=== PATIENT | female | born 1990 | race Caucasian/White ===

== ENCOUNTER 2017-12-26 11:17 | Inpatient (IN) | payer MEDICAID ==
[2017-12-26 11:41] LABS: APPEARANCE,URINE CLOUDY; BILIRUBIN,URINE NEGATIVE (NEGATIVE); COLOR,URINE YELLOW; GLUCOSE, URINE NEGATIVE (NEGATIVE); KETONES,URINE TRACE mg/dL (NEGATIVE); LEUKOCYTE ESTERASE,URINE SMALL (NEGATIVE); NITRITE,URINE NEGATIVE (NEGATIVE); PROTEIN,URINE NEGATIVE (NEGATIVE); UROBILINOGEN,URINE NEGATIVE mg/dL (<2.0)
[2017-12-26] MEDS ORDERED: RINGERS SOLUTION,LACTATED 1,000 ML IV ONE (12:02)
[2017-12-26 12:05] LABS: URINE AMPHETAMINES SCREEN NEGATIVE; URINE BARBITURATES SCREEN NEGATIVE; URINE BENZODIAZEPINES SCREEN NEGATIVE; URINE COCAINE SCREEN NEGATIVE; URINE MARIJUANA (THC) SCREEN NEGATIVE; URINE METHADONE SCREEN NEGATIVE; URINE PHENCYCLIDINE SCREEN NEGATIVE
[2017-12-26] MEDS ORDERED: LIDOCAINE 1% INJ-PF (10 MG/ML) 30 ML SDV ONE (12:45)
[2017-12-26] MEDS ORDERED: MISOPROSTOL 0.2 MG TABLET ONE (12:45)
[2017-12-26] MEDS ORDERED: OXYTOCIN/NORMAL SALINE 20 UNIT/1,000 ML RTUINJ ONE (12:45)
[2017-12-26 12:59] LABS: ABSOLUTE EOSINOPHILS # (AUTO) 0.1 10^3/uL (0.0-0.6); ABSOLUTE LYMPHOCYTES (AUTO) 2.2 10^3/uL (0.5-4.7); ABSOLUTE NEUT (AUTO) 11.2 10^3/uL (1.7-8.2); BASOPHILS % (AUTO) 0.2 % (0-2); EOSINOPHILS % (AUTO) 0.4 % (0-6); HEMATOCRIT 32.8 % (36.0-47.0); HEMOGLOBIN 10.5 g/dL (12.0-15.5); LYMPHOCYTES % (AUTO) 15.5 % (13-45); MEAN CORPUSCULAR HEMOGLOBIN 24.4 pg (27.0-33.4); MEAN CORPUSCULAR VOLUME 76 fl (80-97); MONOCYTES % (AUTO) 6.6 % (3-13); PLATELET COUNT 257 10^3/uL (150-450); RED BLOOD COUNT 4.31 10^6/uL (3.72-5.28); RED CELL DISTRIBUTION WIDTH 16.8 % (11.5-14.0); SEGMENTED NEUTROPHILS % (AUTO) 77.3 % (42-78); TOTAL CELLS COUNTED % (AUTO) 100 %; WHITE BLOOD COUNT 14.4 10^3/uL (4.0-10.5)
[2017-12-26] MEDS ORDERED: EPHEDRINE SULFATE INJ 50 MG/1 ML AMPULE ONE (13:11)
[2017-12-26] MEDS ORDERED: BUPIVACAINE HCL 0.25 % INJ/PF (2.5 MG/1 ML) 30 ML VIAL ONE (13:11)
[2017-12-26] MEDS ORDERED: FENTANYL/BUPIVACAINE/NS/PF 200 MCG/100 ML RTUINJ EPI ONE (13:11)
[2017-12-26] MEDS: RINGERS SOLUTION,LACTATED 1,000 ML IV PRN ×2 (15:20→15:21)
[2017-12-26] MEDS ORDERED: OXYTOCIN/NORMAL SALINE 20 UNIT/1,000 ML RTUINJ IV PRN ×2 (15:35→17:26)
[2017-12-26] MEDS ORDERED: ZOLPIDEM TARTRATE 5 MG TABLET PO PRN (17:26)
[2017-12-26] MEDS ORDERED: DIPH/PERTUSS(ACELL)/TETANUS VAC/PF 0.5 ML SYR (>=10YO) IM PRN (17:26)
[2017-12-26] MEDS ORDERED: MEASLES,MUMPS&RUBELLA VACC/PF 0.5 ML VIAL SUBCUT PRN (17:26)
[2017-12-26] MEDS ORDERED: BENZOCAINE/MENTHOL AEROSOL SPRAY 56 ML TOP PRN (17:26)
[2017-12-26] MEDS ORDERED: ACETAMINOPHEN WITH CODEINE #3 TABLET PO PRN ×2 (17:26)
[2017-12-26] MEDS ORDERED: DIBUCAINE 1% OINTMENT 28 GM TP PRN (17:26)
--- NOTE | 2017-12-26 18:27 | Delivery Summary ---
Del Sum A-C Datetime Report Generated by CPN: 12/26/2017 18:27 DELIVERY PERSONNEL DELIVERY PERSONNEL: [id number] Delivery Doctor:: Lin Nguyễn CNM Labor and Delivery Nurse:: Deepthi Gruber RNproduct development consultant Nurse:: Mago Ramirez RN Natural Science Curator/PRESSURE STEAMER TENDER: Heidy Adamsona, ST MATERNAL INFORMATION Delivery Anesthesia: Epidural Medications After Delivery: Pitocin Drip 20 Units/1000ml NSS Estimated Blood Loss (ml): 250 Maternal Complications: None Provider Comments: of viable female infant over intact perineum, head, shoulders and body delivered without difficutly, with spontaneous respirations and cry, cord clamped X2, cut free by pts after 2 min delay. Spontaneous delivery of placenta via vu mechanism, appears intact, 3 VC. Vagina and perineum inspected, no laceration noted. Hemostasis acheived with external fundal massage and IV pitocin, mother and infant in stable condition, routine pp care. LABOR SUMMARY EDC: 12/30/2017 00:00 Attempted: No Labor Anesthesia: Epidural LABOR INFORMATION Reason for Induction: Not Applicable Onset of Labor: 12/26/2017 11:22 Complete Dilatation: 12/26/2017 16:56 Oxytocin: N/A Group B Beta Strep: Negative Steroids Given: None Reason Steroids Not Administered: Not Applicable MEMBRANES Membranes Rupture Method: Artificial Rupture of Membranes: 12/26/2017 15:15 Length of Rupture (hr): 1.82 Amniotic Fluid Color: Clear Amniotic Fluid Amount: Scant Amniotic Fluid Odor: Normal STAGES OF LABOR Stage 1 hr: 5 Stage 1 min: 34 Stage 2 hr: 0 Stage 2 min: 8 Stage 3 hr: 0 Stage 3 min: 3 Total Time in Labor hr: 5 Total Time in Labor min: 45 VAGINAL DELIVERY Episiotomy: None Laceration #1: None Laceration Extension #1: N/A Laceration #2: None Laceration #3: None Laceration Repair: Not Applicable Sponge Count Correct: N/A Sharps Count Correct: N/A CSECTION DELIVERY Primary Indication: N/A Secondary Indication: N/A CSection Incidence: N/A Labor: N/A Elective: N/A CSection Incision: N/A BABY A INFORMATION Delivery Date/Time: 12/26/2017 17:04 Method of Delivery: Vaginal Born in Route : No : N/A Forceps: N/A Vacuum Extraction: N/A Shoulder Dystocia : No PRESENTATION/POSITION BABY A Presentation: Cephalic Cephalic Presentation: Vertex Vertex Position: Right Occipital Anterior Breech Presentation: N/A PLACENTA INFORMATION BABY A Placenta Delivery Time : 12/26/2017 17:07 Placenta Method of Delivery: Spontaneous Placenta Status: Delivered SCORES BABY A Heart Rate 1 min: >100 bpm Resp Effort 1 min: Good Cry Reflex Irritability 1 min: Cough or Sneeze or Pulls Away Muscle Tone 1 min: Active Motion Color 1 min: Blue/Pale Resuscitation Effort 1 min: Tactile Stimulation SCORE 1 MIN: 8 Heart Rate 5 min: >100 bpm Resp Effort 5 min: Good Cry Reflex Irritability 5 min: Cough or Sneeze or Pulls Away Muscle Tone 5 min: Active Motion Color 5 min: Body [place], Extremities Blue Resuscitation Effort 5 min: Tactile Stimulation SCORE 5 MIN: 9 INFORMATION BABY A Gestational Age at Delivery: 39.3 Gestational Status: Full Term- 39- 40.6 Weeks Infant Outcome : Liveborn Condition : Stable Sex: Female IDENTIFICATION BABY A Verification Date/Time: 12/26/2017 17:19 ID Band Number: [id number] Mother's Name Verified: Yes RN Verifying : J Field RN A Velasco RN WEIGHT/LENGTH BABY A Birthweight (gm): 3690 Weight (lb): 8 Infant Weight (oz): 2 Length (in): 20.75 Infant Length (cm): 52.71 CORD INFORMATION BABY A No. Cord Vessels: 3 Nuchal Cord : N/A Cord Blood Taken: Yes-For Eval (Mom's Blood Type - or O+) Suction: None ASSESSMENT BABY A Complications: None Physical Findings at Delivery: Within Normal Limits Respirations: Appears Normal Skin to Skin: Yes Skin to Skin Time (min): 60 Prep Room Supervisor/ALS Called : No Care By: A. Babine RN Transferred To: Remains with Mother BABY B INFORMATION : N/A SIGNATURES Assignment: Narda Porter MD Signature: with User ID: [email or web address] : with User ID: [email or web address]
--- NOTE | 2017-12-26 19:48 | Admission Physical ---
Datetime Report Generated by CPN: 12/26/2017 19:48 CURRENT ADMISSION Chief Complaint: Uterine Contractions Indication for Induction: Term, Intrauterine ; Active Labor Admit Plan: Admit to Unit; Initiate Labor Protocol ALLERGIES Medication Allergies: Yes Medication Allergies: cefuroxime axetil/Rash, swelling (12/17/2014); cephalexin monohydrate/Rash, swelling (12/17/2014) Latex: No Latex Allergies Food Allergies: N/A Environmental Allergies: N/A OBSTETRICAL HISTORY EDC: 12/30/2017 00:00 : 7 Para: 3 Gestational Diabetes: No Rh Sensitization: No Incompetent Cervix: No LINDSAY: No Infertility: No ART Treatment: No Uterine Anomaly: No IUGR: No Hx Previous C/S: No Macrosomia: No Hx Loss/Stillborn: No PIH: No Hx : No Placenta Previa/Abruption: No Depression/PP Depression: Yes PTL/PROM: No Post Hemorrhage: No Current Procedures: Ultrasound; NST Obstetrical History Comments: G1 - 2009, Baby Girl, 39 weeks G2 - 2012, Baby Boy, 39.4 weeks G3 - 2013, SAB G4 - 2013, SAB G5 - 2013, SAB G6 - 2014, Baby Girl, 40.2 weeks G7 - Current SEE RECORDS Alcohol: No Marijuana : No Cocaine: No Other Illicit Drugs: No Cigarettes: Former Smoker. [id number] Cigarette Frequency: < 5 per day Advised to Stop: Yes Cigarette Comments: Quit when she was MEDICAL HISTORY Diabetes: No Blood Transfusion: No Pulmonary Disease (Asthma, TB): Yes Breast Disease: No Hypertension: No Health And Safety Coordinator Surgery: No Heart Disease: No Hosp/Surgery: Yes Autoimmune Disorder: No Anesthetic Complications: No Kidney Disease: No Abnormal Pap Smear: No Neuro/Epilepsy: No Psychiatric Disorders: No Other Medical Diseases: No Hepatitis/Liver Disease: No Significant Family History: No Varicosities/Phlebitis: No Trauma/Violence : No Thyroid Dysfunction: No Medical History Comments: Taking off of Zoloft at beginning of ; foot surgery in 2004; seasonal mild allergies INFECTIOUS HISTORY Gonorrhea: No Genital Herpes: No Chlamydia: No Tuberculosis: No Syphilis: No Hepatitis: No HIV/AIDS Exposure: No Rash or Viral Illness: No HPV: No PHYSICAL EXAM General: Normal HEENT: Normal Neurologic: Normal Thyroid: Deferred Heart: Normal Lungs: Normal Breast: Deferred Back: Normal Abdomen: Normal Genitourinary Exam: Normal Extremities: Normal DTRs: Normal Pelvic Type: Adequate Physical Exam Comments: pelvis proven to 7#9oz. Vital Signs: Reviewed FETUS A EGA: 39.3 Monitoring: External US; Doppler FHR- Baseline: 130 Variability: Moderate 6-25bpm Accelerations: 15X15 Decelerations: None FHR Category: Category I Presentation: Vertex Admit Comment: 27yo at 39+3ega presented for [facility] at [facility] with regular uterine ctx. Cvx in office was 4cm. Within 1 hour cvx 5-6cm and patient was consented for admission. GBS negative. H/o SAB x 3. h/o x 3. [facility] transfer at 30+4ega. Anatomy US complete. Normal GTT> H/o Depression on zoloft. Desires BTL if . Will admit for labor and AROM if needed. Anticpate . REassuring FWB. o/w uncomplicated. PLANS FOR LABOR AND DELIVERY Labor and Delivery: None Pain Management: Epidural Feeding Preference: Breast Benefit of Breast Feed Discussed: Yes Circumcision: N/A INFORMED CONSENT Informed Consent Obtained: Vaginal Delivery; Risks, Benefits and Alternatives Discussed Signature: with User ID: [email or web address]
[2017-12-26] MEDS: DOCUSATE SODIUM 100 MG CAPSULE PO SCH (20:13)
[2017-12-26] MEDS: FERROUS SULFATE 325 MG TABLET PO SCH (20:13)
[2017-12-26] MEDS: IBUPROFEN 800 MG TABLET PO SCH (22:49)
[2017-12-27] MEDS: IBUPROFEN 800 MG TABLET PO SCH ×3 (06:57→22:32)
[2017-12-27 07:30] LABS: HEMATOCRIT 30.5 % (36.0-47.0); HEMOGLOBIN 9.7 g/dL (12.0-15.5); MEAN CORPUSCULAR HEMOGLOBIN 24.7 pg (27.0-33.4); MEAN CORPUSCULAR HGB CONC 31.9 g/dL (32.0-36.0); MEAN CORPUSCULAR VOLUME 77 fl (80-97); PLATELET COUNT 231 10^3/uL (150-450); RED BLOOD COUNT 3.94 10^6/uL (3.72-5.28); RED CELL DISTRIBUTION WIDTH 16.7 % (11.5-14.0)
--- NOTE | 2017-12-27 09:34 | PDOC PROGRESS REPORT ---
Subjective-OB Subjective: Post Delivery Day: 27 year old. Denies any needs at this time Physical Exam (OB) Vital Signs: Temp Pulse Resp BP Pulse Ox 97.9 F 86 16 113/64 99 12/27/17 08:32 12/27/17 08:32 12/27/17 08:32 12/27/17 08:32 12/27/17 08:32 Intake & Output 12/26/17 12/27/17 12/28/17 06:59 06:59 06:59 Weight 95.3 kg - Lochia Lochia Amount: Small 10-25 ml Lochia Color: Rubra/Red - Abdomen Description: Soft, Round Hernia Present: No Bowel Sounds: Normoactive Flatus Presence: Present Stool: No Fundal Description: Firm, Midline Fundal Height: u/u - u/2 - Extremities Upper extremity: Normal inspection Lower extremities: Normal inspection Objective-Diagnostic Laboratory: 12/27/17 06:59 12/26/17 12/26/17 12/26/17 11:28 12:35 12:35 WBC 14.4 H RBC 4.31 Hgb 10.5 L Hct 32.8 L MCV 76 L MCH 24.4 L MCHC 32.0 RDW 16.8 H Plt Count 257 Seg Neutrophils % 77.3 Lymphocytes % 15.5 Monocytes % 6.6 Eosinophils % 0.4 Basophils % 0.2 Absolute Neutrophils 11.2 H Absolute Lymphocytes 2.2 Absolute Monocytes 1.0 Absolute Eosinophils 0.1 Absolute Basophils 0.0 Urine Color YELLOW Urine Appearance CLOUDY Urine pH 6.0 Ur Specific [place] 1.010 Urine Protein NEGATIVE Urine Glucose (UA) NEGATIVE Urine Ketones TRACE H Urine Blood NEGATIVE Urine Nitrite NEGATIVE Ur Leukocyte Esterase SMALL H Blood Type O POSITIVE Antibody Screen NEGATIVE 12/27/17 06:59 WBC 13.0 H RBC 3.94 Hgb 9.7 L Hct 30.5 L MCV 77 L MCH 24.7 L MCHC 31.9 L RDW 16.7 H Plt Count 231 Seg Neutrophils % Lymphocytes % Monocytes % Eosinophils % Basophils % Absolute Neutrophils Absolute Lymphocytes Absolute Monocytes Absolute Eosinophils Absolute Basophils Urine Color Urine Appearance Urine pH Ur Specific [place] Urine Protein Urine Glucose (UA) Urine Ketones Urine Blood Urine Nitrite Ur Leukocyte Esterase Blood Type Antibody Screen
[2017-12-27] MEDS: SENNOSIDES/DOCUSATE 8.6-50 MG 1 EACH TABLET PO SCH (10:09)
[2017-12-27] MEDS: DOCUSATE SODIUM 100 MG CAPSULE PO SCH ×2 (10:09→17:43)
[2017-12-27] MEDS: FERROUS SULFATE 325 MG TABLET PO SCH ×2 (10:09→17:43)
[2017-12-27] MEDS: PRENATAL VITAMIN W DHA CAPSULE PO SCH (10:09)
[2017-12-28] MEDS: IBUPROFEN 800 MG TABLET PO SCH ×2 (05:31→13:31)
[2017-12-28 10:18] VITALS: BP 117/63
[2017-12-28] MEDS: PRENATAL VITAMIN W DHA CAPSULE PO SCH (10:54)
[2017-12-28] MEDS: FERROUS SULFATE 325 MG TABLET PO SCH (10:55)
[2017-12-28] MEDS: DOCUSATE SODIUM 100 MG CAPSULE PO SCH (10:55)
[2017-12-28] MEDS: SENNOSIDES/DOCUSATE 8.6-50 MG 1 EACH TABLET PO SCH (10:55)
--- NOTE | 2017-12-28 11:54 | PDOC PROGRESS REPORT ---
Subjective-OB Subjective: Post Delivery Day: 27 year old. Denies any needs at this time. Ready to go home. Physical Exam (OB) Vital Signs: Temp Pulse Resp BP Pulse Ox 97.8 F 56 L 20 117/63 98 12/28/17 07:31 12/28/17 07:31 12/28/17 07:31 12/28/17 07:31 12/28/17 07:31 Intake & Output 12/27/17 12/28/17 12/29/17 06:59 06:59 06:59 Weight 95.3 kg - PIH/Pre-Eclampsia DTR's: 2 + Clonus: Negative Headache: Absent Epigastric Pain: No Visual Changes: No - Lochia Lochia Amount: Scant < 10 ml Lochia Color: Rubra/Red - Abdomen Description: Soft Hernia Present: No Bowel Sounds: Normoactive Flatus Presence: Present Stool: Yes Fundal Description: Firm, Midline Fundal Height: u/u - u/2 Objective-Diagnostic Laboratory: 12/27/17 06:59
--- NOTE | 2017-12-28 11:58 | PDOC DISCHARGE SUMMARY ---
Final Diagnosis Discharge Date: 12/28/17 Discharge Data - Discharge Medication Home Medications: Vits96/Iron Fum/Folic [ Tablet] 1 tab PO DAILY 11/23/14 Gestational Age: 39.3 wks Reason(s) for Admission: Onset of Labor Intrapartum Procedure(s): Spontaneous Vaginal Delivery - Data Baby 1 Female at 1 minute: 8 at 5 minutes: 9 Weight: 3.685 kg Home with Mother: Yes Complications: No - Diagnosis Test Laboratory: Temp Pulse Resp BP Pulse Ox 97.8 F 56 L 20 117/63 98 12/28/17 07:31 12/28/17 07:31 12/28/17 07:31 12/28/17 07:31 12/28/17 07:31 12/26/17 12/26/17 12/27/17 11:28 12:35 06:59 RBC 4.31 3.94 Hgb 10.5 L 9.7 L Hct 32.8 L 30.5 L Urine Opiates Screen NEGATIVE - Discharge information/Instructions Discharge Activity: Activity As Tolerated, Balance Activity w/Rest, Pelvic Rest , Slowly Increase Activity, No tub bath Discharge Diet: Regular Disposition: HOME, SELF-CARE Follow up with: [facility] in: 4, Weeks
== END 2017-12-28 14:21 | disposition home or self-care (01) | DRG 775 ==
LOC: LC 11:17 → LR 12:03 → 2S 19:45
PROVIDERS: ADMIT Student in an Organized Health Care Education/Training Program; ATTEND Student in an Organized Health Care Education/Training Program
PROC: 10E0XZZ Delivery of Products of Conception, External Approach (ICD-10-PCS; principal; 2017-12-26)
DX: O99.344 Other mental disorders complicating childbirth (principal); F32.9 Major depressive disorder, single episode, unspecified; O99.334 Smoking (tobacco) complicating childbirth; F17.211 Nicotine dependence, cigarettes, in remission; Z3A.39 39 weeks gestation of pregnancy; Z37.0 Single live birth
CPT/HCPCS: 36415; 80307; 81005; 85025; 85027; 86592; 86850; 86900; 86901; J2590; J3490

== ENCOUNTER 2018-03-11 08:26 | Day surgery (SDC) | payer MEDICAID ==
[2018-02-26 13:01] LABS: APPEARANCE,URINE CLEAR; BILIRUBIN,URINE NEGATIVE (NEGATIVE); COLOR,URINE STRAW; GLUCOSE, URINE NEGATIVE (NEGATIVE); KETONES,URINE NEGATIVE (NEGATIVE); LEUKOCYTE ESTERASE,URINE NEGATIVE (NEGATIVE); NITRITE,URINE NEGATIVE (NEGATIVE); PROTEIN,URINE NEGATIVE (NEGATIVE); URINE SPECIFIC GRAVITY 1.011; UROBILINOGEN,URINE NEGATIVE mg/dL (<2.0)
[2018-02-26 13:08] LABS: HEMATOCRIT 41.2 % (36.0-47.0); HEMOGLOBIN 13.3 g/dL (12.0-15.5); MEAN CORPUSCULAR HEMOGLOBIN 26.1 pg (27.0-33.4); MEAN CORPUSCULAR HGB CONC 32.3 g/dL (32.0-36.0); MEAN CORPUSCULAR VOLUME 81 fl (80-97); PLATELET COUNT 373 10^3/uL (150-450); RED CELL DISTRIBUTION WIDTH 24.5 % (11.5-14.0); WHITE BLOOD COUNT 11.7 10^3/uL (4.0-10.5)
[~2018-03-11 08:26] MED LIST: ACETAMINOPHEN 100 ML IV ONE; DEXAMETHASONE SOD PHOSPHATE INJ 4 MG/1 ML VIAL ONE; FENTANYL CITRATE INJ/PF 100 MCG/2 ML AMPUL ONE; LACTATED RINGERS 1000 ML IV PRN; LIDOCAINE 0.5% INJ-PF (5 MG/ML) 50 ML SDV SUBCUT PRN; LIDOCAINE 2% INJ-PF (20 MG/ML) 10 ML AMPUL ONE; MIDAZOLAM 2 MG/2 ML INJ ONE; ONDANSETRON HCL INJ/PF 4 MG/2 ML SDV ONE; PROPOFOL INJ 200 MG/20 ML VIAL IV ONE
[2018-03-11] MEDS ORDERED: BUPIVACAINE HCL 0.25 % INJ/PF (2.5 MG/1 ML) 30 ML VIAL ONE (11:04)
[2018-03-11] MEDS ORDERED: FENTANYL CITRATE INJ/PF 100 MCG/2 ML AMPUL ONE ×2 (11:19→12:15)
[2018-03-11] MEDS ORDERED: PROMETHAZINE HCL INJ 25 MG/1 ML VIAL IV PRN ×2 (11:44)
[2018-03-11] MEDS ORDERED: OXYCODONE-ACETAMINOPHEN 5-325 MG TABLET PO PRN ×3 (11:44→13:14)
[2018-03-11] MEDS ORDERED: MEPERIDINE HCL/PF INJ 25 MG/1 ML DISP.SYRIN IV PRN (11:44)
[2018-03-11] MEDS ORDERED: DIPHENHYDRAMINE HCL 50 MG/ML VIAL IV PRN (11:44)
[2018-03-11] MEDS ORDERED: FENTANYL CITRATE INJ/PF 100 MCG/2 ML AMPUL IV PRN ×3 (11:44)
[2018-03-11] MEDS ORDERED: MORPHINE SULFATE 10 MG/ML INJ IV PRN (11:44)
--- NOTE | 2018-03-11 12:15 | OPERATIVE REPORT E ---
Operative Report NAME: JESSIKA ACUNA : 1990 AGE: 28Y DATE OF SURGERY: 03/11/2018 ROOM: PREOPERATIVE DIAGNOSIS: DESIRES FERTILIZATION. POSTOPERATIVE DIAGNOSIS: DESIRES FERTILIZATION. OPERATION: Bilateral tubal occlusion using Filshie clips. SURGEON: Elissa HERNANDEZ M.D. ANESTHESIA: General. ESTIMATED BLOOD LOSS: Negligible. PROCEDURE: Patient was placed in the dorsolithotomy position and prepped and draped in sterile fashion. Speculum was placed. Cervix was visualized and grasped with a single-toothed tenaculum. Hulka then placed. Single-toothed tenaculum was removed. Speculum was removed. Bladder was drained with a straight cath. Attention was turned to the abdomen, where a subumbilical incision was made. Trocar was introduced and it was placed into the abdomen. The laparoscope was introduced. Visualization of tubes, uterus and ovaries, which appeared to be normal. The right fallopian tube was clipped in the proximal portion, with good purchase of tissue being noted. Procedure was repeated on the left. Both tubes were identified to the fimbria prior to and after applying the Filshie clips. The laparoscope was removed and abdomen deflated. Trocar sleeves removed. The incision closed with 0 Vicryl for the fascia and 4-0 Vicryl subcutaneous. Patient tolerated it well and was taken to recovery in good condition. DICTATING PHYSICIAN: Elissa HERNANDEZ M.D. [id number] PHY#: [id number] ID: [id number] JOB#: [id number] ACCT: [id number] cc:Elissa HERNANDEZ M.D. >
[2018-03-11] MEDS ORDERED: KETOROLAC TROMETHAMINE INJ/PF 30 MG/1 ML SDV ONE (12:36)
[2018-03-11] MEDS ORDERED: OXYCODONE-ACETAMINOPHEN 5-325 MG TABLET ONE (13:02)
[2018-03-11] MEDS ORDERED: ONDANSETRON HCL 8 MG TABLET PO PRN (13:14)
[2018-03-11] MEDS ORDERED: SUCCINYLCHOLINE CHLORIDE INJ 200 MG/10 ML VIAL ONE (13:28)
[2018-03-11] MEDS ORDERED: NEOSTIGMINE METHYLSULFATE 10 MG/10 ML VIAL ONE (13:28)
[2018-03-11] MEDS ORDERED: VECURONIUM BROMIDE INJ 10 MG VIAL IV ONE (13:28)
[2018-03-11] MEDS ORDERED: GLYCOPYRROLATE INJ 0.4 MG/2 ML VIAL ONE (13:28)
[2018-03-11 14:08] VITALS: BP 121/73
[2018-03-11] MEDS ORDERED: IBUPROFEN 800 MG TABLET PO SCH (22:00)
== END 2018-03-11 14:05 | disposition home or self-care (01) ==
LOC: OROUT 08:26
PROVIDERS: ATTEND Obstetrics & Gynecology Gynecology
PROC: 0UL74CZ Occlusion of Bilateral Fallopian Tubes with Extraluminal Device, Percutaneous Endoscopic Approach (ICD-10-PCS; principal; 2018-03-11 10:45)
DX: Z30.2 Encounter for sterilization (principal); J45.20 Mild intermittent asthma, uncomplicated; D64.9 Anemia, unspecified; F32.9 Major depressive disorder, single episode, unspecified; Z88.1 Allergy status to other antibiotic agents; Z87.891 Personal history of nicotine dependence; Z79.899 Other long term (current) drug therapy
CPT/HCPCS: 36415; 85027; 81005; 81025; 58671; J2250; J1100; J3010; J3490 ×3; J1885; J0330; J2405; S0020; J2704; J0131; 851